=== PATIENT | female | born 1995 | race Caucasian/White ===

== ENCOUNTER 2017-07-18 13:50 | Observation (INO) | payer SELFPAY ==
[~2017-07-18] VITALS: Ht 152.4 cm; Wt 95.3 kg
[2017-07-18 14:54] VITALS: BP 130/89
[2017-07-18] MEDS ORDERED: INFLUENZA VIRUS VACCINE QVS 2017-18 (3YR+)/PF 60 MCG/0.5 ML SYRINGE IM ONE (15:00)
== END 2017-07-18 16:55 | disposition home or self-care (01) ==
LOC: 4S 13:50
PROVIDERS: ADMIT Obstetrics & Gynecology; ATTEND Obstetrics & Gynecology
DX: O42.92 Full-term premature rupture of membranes, unspecified as to length of time between rupture and onset of labor (principal); O62.9 Abnormality of forces of labor, unspecified; O26.893 Other specified pregnancy related conditions, third trimester; M54.5 Low back pain; Z3A.38 38 weeks gestation of pregnancy
CPT/HCPCS: 36415; 59025; 89060; G0378

== ENCOUNTER 2017-07-21 22:33 | Observation (INO) | payer SELFPAY ==
[~2017-07-21] VITALS: Ht 154.9 cm; Wt 95.7 kg
[2017-07-21] MEDS ORDERED: PREN1TAB80 PO (23:41)
[2017-07-22 00:30] VITALS: BP 137/87
== END 2017-07-22 00:40 | disposition home or self-care (01) ==
LOC: 4S 22:33
PROVIDERS: ADMIT Obstetrics & Gynecology; ATTEND Obstetrics & Gynecology
DX: O62.9 Abnormality of forces of labor, unspecified (principal); Z3A.38 38 weeks gestation of pregnancy
CPT/HCPCS: 59025; G0378 ×2

== ENCOUNTER 2017-07-22 05:30 | Inpatient (IN) | payer MEDICAID ==
[~2017-07-22] VITALS: Ht 152.4 cm; Wt 96.2 kg
[~2017-07-22 05:30] MED LIST: PREN1TAB80 PO
[2017-07-22 09:11] VITALS: BP 137/95
[2017-07-22] MEDS ORDERED: RINGERS SOLUTION,LACTATED 1,000 ML IV PRN (09:21)
[2017-07-22] MEDS ORDERED: OXYTOCIN 30 UNITS/LACT RINGERS 500 ML IV ONE (09:21)
[2017-07-22] MEDS ORDERED: METOCLOPRAMIDE HCL 5 MG/ML 2 ML VIAL IVP PRN (09:30)
[2017-07-22] MEDS ORDERED: CITRIC ACID/SODIUM CITRATE 30 ML SOLUTION UDCUP PO PRN (09:30)
[2017-07-22 09:57] LABS: BASOPHILS % (AUTO) 0.6 % (0.0-2.0); EOSINOPHILS % (AUTO) 0 % (1.0-6.0); HEMATOCRIT 32.7 % (36-46); HEMOGLOBIN 10.8 g/dL (12.0-16.0); LYMPHOCYTES # (AUTO) 1.4 K/uL (1.0-4.8); LYMPHOCYTES % (AUTO) 14.5 % (22.0-44.0); MEAN CORPUSCULAR HEMOGLOBIN 25.4 pg (26.0-34.0); MEAN CORPUSCULAR HGB CONC 33.1 G/dL (31.0-37.0); MEAN CORPUSCULAR VOLUME 77 fL (80-100); MONOCYTES # (AUTO) 0.8 K/uL (0.1-1.0); MONOCYTES % (AUTO) 7.8 % (2.0-9.0); NEUTROPHILS # (AUTO) 7.6 K/uL (1.8-7.7); NEUTROPHILS % (AUTO) 77.1 % (40.0-70.0); PLATELET COUNT (AUTO)-OB 198 K/uL (150-450); RED BLOOD CELL COUNT(AUTO) 4.26 MIL/uL (4.00-5.20); RED CELL DISTRIBUTION WIDTH 15.8 % (11.5-14.5)
[2017-07-22] MEDS: RINGERS SOLUTION,LACTATED 1,000 ML IV SCH ×2 (10:15→18:35)
[2017-07-22] MEDS ORDERED: FentaNYL CITRATE-PF 100 MCG/2 ML VIAL ONE ×4 (11:13→18:44)
[2017-07-22] MEDS ORDERED: ROPIVACAINE HCL 0.2% 100 ML ED ONE ×2 (11:13→18:43)
[2017-07-22] MEDS: OXYTOCIN 30 UNITS/LACT RINGERS 500 ML IV PRN ×2 (18:22→18:45)
[2017-07-22] MEDS ORDERED: OXYTOCIN 30 UNITS/LACT RINGERS 500 ML IV PRN (18:30)
[2017-07-22] MEDS ORDERED: GENTAMICIN 120 MG/NACL ISO-OSM 100 ML IV ONE (18:30)
[2017-07-22] MEDS ORDERED: AMPICILLIN SODIUM 2 GM/NS 100 ML IV ONE (18:30)
[2017-07-22] MEDS ORDERED: OXYGEN THERAPY IH SCH (20:00)
[2017-07-22] MEDS: AMPICILLIN SODIUM 1 GM/NS 50 ML IV SCH (22:45)
[2017-07-22] MEDS ORDERED: ACETAMINOPHEN 1000 MG/ISO-OSM 100 ML IV ONE (23:45)
[2017-07-23] MEDS ORDERED: BUPIVACAINE HCL/PF 0.25% 10 ML VIAL ONE (02:23)
[2017-07-23] MEDS ORDERED: LIDOCAINE HCL/PF 2% 5 ML VIAL ONE (02:23)
[2017-07-23] MEDS: AMPICILLIN SODIUM 1 GM/NS 50 ML IV SCH (02:25)
[2017-07-23] MEDS ORDERED: ROPIVACAINE HCL 0.2% 100 ML ED ONE (02:38)
[2017-07-23] MEDS ORDERED: FentaNYL CITRATE-PF 100 MCG/2 ML VIAL ONE ×2 (02:38→02:43)
[2017-07-23] MEDS ORDERED: GENTAMICIN 80 MG/NACL ISO-OSM 50 ML IV SCH (03:00)
[2017-07-23] MEDS ORDERED: RINGERS SOLUTION,LACTATED 1,000 ML IV ONE (04:19)
[2017-07-23] MEDS ORDERED: GLYCERIN/WITCH HAZEL LEAF 40 PADS JAR TP PRN (04:30)
[2017-07-23] MEDS ORDERED: BENZOCAINE 20%/MENTHOL 56 GM SPRAY CANISTER TP PRN (04:30)
[2017-07-23] MEDS ORDERED: LANOLIN 7 GM OINTMENT TP PRN (04:30)
[2017-07-23] MEDS ORDERED: OxyCODONE HCL/ACETAMINOPHEN 5-325 MG TABLET PO PRN (04:30)
[2017-07-23] MEDS: IBUPROFEN 600 MG TABLET PO PRN ×3 (06:16→20:57)
[2017-07-23] MEDS: OxyCODONE HCL/ACETAMINOPHEN 5-325 MG TABLET PO PRN ×2 (06:16→20:57)
[2017-07-23] MEDS: MAGNESIUM HYDROXIDE SUSPENSION 30 ML UDCUP PO SCH ×2 (09:09→20:57)
[2017-07-24] MEDS ORDERED: IBUP-2070 PO (09:10)
[2017-07-24] MEDS ORDERED: DSS100 PO (09:15)
[2017-07-24] MEDS ORDERED: FERR-89 PO (09:15)
[2017-07-24] MEDS: MAGNESIUM HYDROXIDE SUSPENSION 30 ML UDCUP PO SCH (09:16)
[2017-07-24] MEDS: IBUPROFEN 600 MG TABLET PO PRN (09:16)
== END 2017-07-24 12:15 | disposition home or self-care (01) | DRG 560 ==
LOC: 4S 05:30 → OBSVTOIN 05:30
PROVIDERS: ADMIT Obstetrics & Gynecology; ATTEND Obstetrics & Gynecology
PROC: 10E0XZZ Delivery of Products of Conception, External Approach (ICD-10-PCS; principal; 2017-07-22)
PROC: 0W8NXZZ Division of Female Perineum, External Approach (ICD-10-PCS; 2017-07-22)
PROC: 3E0R3BZ Introduction of Anesthetic Agent into Spinal Canal, Percutaneous Approach (ICD-10-PCS; 2017-07-22)
PROC: 00HU33Z Insertion of Infusion Device into Spinal Canal, Percutaneous Approach (ICD-10-PCS; 2017-07-22)
DX: O80 Encounter for full-term uncomplicated delivery (principal); Z37.0 Single live birth; Z3A.38 38 weeks gestation of pregnancy
CPT/HCPCS: 86850; 86900; 86901; J0131; J0290; J1580; J2590; J2795; J3010; J3490; J7120